=== PATIENT | male | born 1985 | race Caucasian/White ===

== ENCOUNTER 2017-05-31 17:27 | Emergency (ER) | payer SELFPAY ==
[~2017-05-31] VITALS: Ht 182.8 cm; Wt 79.4 kg
[~2017-05-31 17:27] MED LIST: BACTRIM DS 8001 TA1 PO; Meclizine25 MG PO; PREDNISONE10 MG PO
[2017-05-31] MEDS ORDERED: CEFADROXIL500 M1 PO (18:15)
== END 2017-05-31 19:11 | disposition home or self-care (01) ==
LOC: ED 17:27
DX: S61.216A Laceration without foreign body of right little finger without damage to nail, initial encounter (principal); Z79.899 Other long term (current) drug therapy; W25.XXXA Contact with sharp glass, initial encounter; Y93.89 Activity, other specified; Y92.099 Unspecified place in other non-institutional residence as the place of occurrence of the external cause; Y99.9 Unspecified external cause status